=== PATIENT | male | born 1985 | race Caucasian/White ===

== ENCOUNTER → 2024-01-01 | Outpatient (CLI) | payer OTHER ==
--- NOTE | 2024-01-01 14:01 | CT ---
EXAMINATION TYPE: CT lumbar spine wo con DATE OF EXAM: 01/01/2024 COMPARISON: Radiograph 01/01/2024 HISTORY: 38-year-old male Strain of muscle fascia. Low back injury after lifting heavy object on Mond ay. TECHNIQUE: Contiguous axial scanning of the lumbar spine without IV contrast. Coronal and sagittal re constructions performed. CT DLP: 509.0 mGycm Automated exposure control for dose reduction was used. FINDINGS: Scattered small endplate Schmorl's node throughout the visualized lower thoracic and lumbar spine. In cidental L4 limbus vertebra. No acute fracture seen. Kgqk-ns-brtqnsqe facet arthropathy mid to lower lumbar spine especially towards the right. There is moderate degenerative disc disease throughout characterize by variable disc space narrowing and diffuse disc bulges. Degenerative 1 retrolisthesis L3-L4. Remaining alignment is maintained. Posterior disc bulges contribute to: Uyjt-ro-aonqrkai spinal canal stenosis at T12-L1. Mild at L1-L2, L2-L3, L4-L5, and L5-S1. Moderate spinal canal stenosis at L3-L4 along with right lateral recess stenosis. On the right, changes result in moderate to severe neuroforaminal stenosis at L4-L5 and mild to moder ate at L3-L4. On the left, changes of the left and mild to moderate neural foraminal stenosis at L3-L4 and L4-L5. M ild L5-S1. No prevertebral or paravertebral soft tissue abnormality seen. IMPRESSION: 1. AGE ACCELERATED MODERATE DEGENERATIVE DISC DISEASE THROUGHOUT THE VISUALIZED LOWER THORACIC AND JESSY MBAR SPINE. QUERY ANY SMOKING HISTORY. DEGENERATIVE GRADE 1 RETROLISTHESIS L3-L4. 2. Along with a grade 1 retrolisthesis at L3-L4, there is a central and right paracentral disc hernia tion at this level contributing to a moderate spinal canal stenosis and right lateral recess stenosis . Moderate to severe right foraminal stenosis at this level. 3. Additional mild to moderate spinal canal stenosis at T12-L1 and mild at additional levels througho ut the lumbar spine.
== END | disposition home or self-care (01) ==
LOC: RADCTMAIN 13:13
PROVIDERS: ATTEND Emergency Medicine
DX: S39.012A Strain of muscle, fascia and tendon of lower back, initial encounter (principal); M43.16 Spondylolisthesis, lumbar region; M48.061 Spinal stenosis, lumbar region without neurogenic claudication; M51.26 Other intervertebral disc displacement, lumbar region; M51.36 Other intervertebral disc degeneration, lumbar region
CPT/HCPCS: 72131

== ENCOUNTER → 2024-01-01 | Outpatient (CLI) | payer OTHER ==
--- NOTE | 2024-01-01 12:08 | XR ---
EXAMINATION TYPE: XR lumbar spine 2 or 3V DATE OF EXAM: 01/01/2024 11:22 AM CLINICAL INDICATION:Male, 38 years old with history of S39.012A muscle strain; [facility] COMPARISON: None TECHNIQUE: XR lumbar spine 2 or 3V - Frontal, lateral and coned in L5-S1 lateral views of the spine. FINDINGS: L4 anterosuperior vertebral body limbus vertebrae suspected. Mild wedging of the L1 vertebr al body anteriorly. With mild height loss of the anterior aspect left 25%. The remainder of the align ment alignment of the lumbar vertebral bodies within normal limits. Scattered disc space narrowing. M ultilevel marginal osteophyte formation throughout the visualized spine. There is facet joint arthrop athy throughout the spine. Scattered at least mild neural foraminal stenosis. IMPRESSION: Indeterminate wedging of L1 vertebral body anteriorly. Consider further evaluation MRI to rule out fr acture.
== END | disposition home or self-care (01) ==
LOC: RADXRMAIN 11:03
PROVIDERS: ATTEND Emergency Medicine
DX: S39.012A Strain of muscle, fascia and tendon of lower back, initial encounter (principal)
CPT/HCPCS: 72100